=== PATIENT | male | born 1995 | race Caucasian/White ===

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

== ENCOUNTER 2017-05-20 16:40 | Emergency (ER) | payer OTHER ==
[2017-05-20 17:59] VITALS: BP 107/69
--- NOTE | 2017-05-20 18:31 | ED ---
Abdominal Pain/Male - HPI Summary HPI Summary: 21 yr old male with onset of abdominal pain this morning at 6 am. Pain is in lower abdomen, associated with decreased appetite. He has not had fever or chills. He denies diarrhea. No vomiting. He does not have worse symptoms with walking. He is requesting a note for school. - History of Current Complaint Chief Complaint: UCAbdominalPain Stated Complaint: DIGESTIVE COMP Time Seen by Provider: 05/20/17 18:10 Pain Intensity: 6 - Allergies/Home Medications Allergies/Adverse Reactions: Allergies Allergy/AdvReac Type Severity Reaction Status Date / Time No Known Allergies Allergy Verified 05/20/17 17:59 PMH/Surg Hx/FS Hx/Imm Hx Previously Healthy: Yes Infectious Disease History: No Infectious Disease History: Denies: Traveled Outside the [place] in Last 30 Days - Family History Known Family History: Negative: Cardiac Disease, Hypertension - Social History Occupation: Student Alcohol Use: Weekly Substance Use Type: Reports: None Smoking Status (MU): Never Smoked Tobacco Have You Smoked in the Last Year: No Review of Systems Negative: Fever, Chills Positive: Abdominal Pain Positive: no symptoms reported. Negative: pain, urgency All Other Systems Reviewed And Are Negative: Yes Physical Exam Triage Information Reviewed: Yes Vital Signs On Initial Exam: Initial Vitals Temp Pulse Resp BP Pulse Ox 98.8 F 93 14 107/69 97 05/20/17 17:55 05/20/17 17:55 05/20/17 17:55 05/20/17 17:55 05/20/17 17:55 Vital Signs Reviewed: Yes Appearance: Positive: Well-Appearing, No Pain Distress Skin: Positive: Warm, Skin Color Reflects Adequate Perfusion, Dry Head/Face: Positive: Normal Head/Face Inspection Eyes: Positive: EOMI ENT: Positive: Normal ENT inspection Respiratory/Lung Sounds: Positive: Clear to Auscultation, Breath Sounds Present Cardiovascular: Positive: RRR. Negative: Murmur Abdomen Description: Positive: Other: - mild tender in LLQ of abdomen. Musculoskeletal: Positive: Strength/ROM Intact Neurological: Positive: Sensory/Motor Intact, Alert, Oriented to Person Place, Time, CN Intact II-III Psychiatric: Positive: Normal - [place] Coma Scale Best Eye Response: 4 - Spontaneous Best Motor Response: 6 - Obeys Commands Best Verbal Response: 5 - Oriented Coma Scale Total: 15 Diagnostics - Vital Signs Vital Signs Temp Pulse Resp BP Pulse Ox 05/20/17 17:55 98.8 F 93 14 107/69 97 - Laboratory Lab Statement: Any lab studies that have been ordered have been reviewed, and results considered in the medical decision making process. Abdominal Pain Fem Course/Dx - Course Course Of Treatment: 21 yrold male with lower abdominal pain. He refused an ambulance and states he is able to drive himself to the ER. He states he is going to [facility] for further evaluation upon leaving here. He is aware of the possibility of appendicitis and not to delay going to the ER. Sydney Jeffery, E[facility]RA at [facility] contacted for tranfer over there and they are aware patient driving themselves there for further eval. - Diagnoses Provider Diagnoses: Abdominal pain, bilateral lower quadrant Discharge - Sign-Out/Discharge Documenting (check all that apply): Discharge - Discharge Plan Condition: Good Disposition: HOME Patient Education Materials: Acute Abdominal Pain (ED) Referrals: [facility] [Outside] Non Staff,Doctor [Primary Care Provider] - Additional Instructions: [facility]: Emergency Room Emergency Room DirectionsWebsite Address: [address] [place] [address] [place] [address] upon leaving here you need to go to the ER for further evaluation. - Billing Disposition and Condition Condition: GOOD Disposition: HOME
== END 2017-05-20 18:30 | disposition home or self-care (01) ==
LOC: UCCORT 16:40
DX: R10.32 Left lower quadrant pain (principal); R10.31 Right lower quadrant pain
CPT/HCPCS: 99212; G0463

== ENCOUNTER 2018-12-13 13:26 | Emergency (ER) | payer OTHER ==
--- NOTE | 2018-12-13 13:38 | UC ---
Throat Pain/Nasal Chris HPI - HPI Summary HPI Summary: 23 yo male presents with URI symptoms. He tells me that yesterday he developed a runny nose, headache, and sore throat. Took tylenol and felt a little better. [place] feverish all last night, but did not take his temperature. Denies cough, SOB, rash, abdominal pain, n/v - History of Current Complaint Stated Complaint: WADSWORTH,RUNNY NOSE Time Seen by Provider: 12/13/18 13:37 Hx Obtained From: Patient Onset/Duration: Sudden Onset Severity: Moderate Pain Intensity: 5 Pain Scale Used: 0-10 Numeric - Allergies/Home Medications Allergies/Adverse Reactions: Allergies Allergy/AdvReac Type Severity Reaction Status Date / Time No Known Allergies Allergy Verified 12/13/18 14:01 Home Medications: Home Medications Acetaminophen [Tylenol Extra Strength] 1,500 mg PO ONCE PRN 12/13/18 [History Confirmed 12/13/18] PMH/Surg Hx/FS Hx/Imm Hx - Additional Past Medical History Additional PMH: None - Surgical History Surgical History: None - Family History Known Family History: Negative: Cardiac Disease, Hypertension - Social History Occupation: Student Lives: Dormitory/Roommates Alcohol Use: Weekly Substance Use Type: None Smoking Status (MU): Never Smoked Tobacco Have You Smoked in the Last Year: No Review of Systems All Other Systems Reviewed And Are Negative: No Constitutional: Positive: Negative Skin: Positive: Negative Eyes: Positive: Negative ENT: Positive: Sore Throat, Nasal Discharge Respiratory: Positive: Negative Cardiovascular: Positive: Negative Neurological: Positive: Negative Psychological: Positive: Negative Physical Exam - Summary Physical Exam Summary: GENERAL: NAD. WDWN. No pain distress. SKIN: No rashes, sores, lesions, or open wounds. HEENT: Head: AT/NC Eyes: EOM intact. Conjunctiva clear without inflammation or discharge. Ears: Hearing grossly normal. TMs intact, no bulging, erythema, or edema. Nose: Nasal mucosa pink and moist. NTTP maxillary and frontal sinus. Throat: Posterior oropharynx with mild erythema. No exudates or tonsillar enlargement. Uvula midline. NECK: Supple. Nontender. No lymphadenopathy. CHEST: CTAB. No accessory muscle use. Breathing comfortably and in no distress. CV: RRR. Pulses intact. Cap refill <2seconds NEURO: Alert. PSYCH: Age appropriate behavior. Triage Information Reviewed: Yes Vital Signs: Vital Signs: Temp Pulse Resp BP Pulse Ox 98.6 F 82 17 128/49 97 12/13/18 14:00 12/13/18 14:00 12/13/18 14:00 12/13/18 14:00 12/13/18 14:00 Laboratory Tests 12/13/18 14:06 Group A Strep Rapid Positive A Vital Signs Reviewed: Yes Throat Pain/Nasal Course/Dx - Course Course Of Treatment: POC strep positive. Will treat with amoxicillin - Differential Dx/Diagnosis Provider Diagnosis: Strep throat Discharge ED - Sign-Out/Discharge Documenting (check all that apply): Patient Departure All imaging exams completed and their final reports reviewed: No Studies - Discharge Plan Condition: Stable Disposition: HOME Prescriptions: Amoxicillin PO (*) [Amoxicillin 500 MG CAP*] 500 mg PO Q12H #20 cap Patient Education Materials: Strep Throat (ED) Forms: *School Release Referrals: Non Staff,Doctor [Primary Care Provider] - Additional Instructions: If you develop a fever, shortness of breath, chest pain, new or worsening symptoms - please call your PCP or go to the ED immediately. - Billing Disposition and Condition Condition: STABLE Disposition: Home
[2018-12-13 14:03] VITALS: BP 128/49
== END 2018-12-13 14:18 | disposition home or self-care (01) ==
LOC: UCCORT 13:26
DX: J02.0 Streptococcal pharyngitis (principal); R09.89 Other specified symptoms and signs involving the circulatory and respiratory systems
CPT/HCPCS: 87651; 99212; G0463

== ENCOUNTER 2019-01-10 11:28 | Emergency (ER) | payer OTHER ==
[2019-01-10 11:41] VITALS: BP 140/70
--- NOTE | 2019-01-10 11:57 | UC ---
Throat Pain/Nasal Chris HPI - HPI Summary HPI Summary: sore throat x 1 day + fever, chills, body aches, mild cough, nasal congestion , just recovered from strep throat about one week ago - History of Current Complaint Chief Complaint: UCGeneralIllness Stated Complaint: COLD SYMPTOMS Time Seen by Provider: 01/10/19 11:43 Hx Obtained From: Patient Onset/Duration: Gradual Onset, Lasting Days - 1, Still Present Severity: Moderate Pain Intensity: 0 Cough: None Associated Signs & Symptoms: Positive: Fever. Negative: Dysphagia, FB Sensation , Drooling, Wheezing, Hoarseness, Sinus Discomfort, Nasal Discharge, Vomiting, Rash - Allergies/Home Medications Allergies/Adverse Reactions: Allergies Allergy/AdvReac Type Severity Reaction Status Date / Time No Known Allergies Allergy Verified 01/10/19 11:36 PMH/Surg Hx/FS Hx/Imm Hx Previously Healthy: Yes - Surgical History Surgical History: None Surgery Procedure, Year, and Place: appy - Family History Known Family History: Negative: Cardiac Disease, Hypertension - Social History Alcohol Use: Weekly Substance Use Type: None Smoking Status (MU): Never Smoked Tobacco Have You Smoked in the Last Year: No Review of Systems All Other Systems Reviewed And Are Negative: Yes Constitutional: Positive: Fever, Chills, Fatigue Skin: Positive: Negative Eyes: Positive: Negative ENT: Positive: Sore Throat. Negative: Ear Ache, Nasal Discharge Respiratory: Positive: Cough Cardiovascular: Positive: Negative Is Patient Immunocompromised?: No Physical Exam Triage Information Reviewed: Yes Appearance: Well-Appearing, No Pain Distress, Well-Nourished Vital Signs: Initial Vital Signs Temp 99.1 F 01/10/19 11:37 Pulse 83 01/10/19 11:37 Resp 16 01/10/19 11:37 BP 140/70 01/10/19 11:37 Pulse Ox 98 01/10/19 11:37 Vital Signs Reviewed: Yes Eyes: Positive: Conjunctiva Clear ENT: Positive: Normal ENT inspection, Hearing grossly normal, Pharyngeal erythema, Nasal drainage. Negative: Tonsillar swelling, Tonsillar exudate Neck exam: Normal Neck: Positive: Supple, Nontender, No Lymphadenopathy Respiratory: Positive: Chest non-tender, Lungs clear, Normal breath sounds Cardiovascular: Positive: RRR, No Murmur, Pulses Normal Skin Exam: Normal Throat Pain/Nasal Course/Dx - Differential Dx/Diagnosis Provider Diagnosis: Strep pharyngitis Discharge ED - Sign-Out/Discharge Documenting (check all that apply): Patient Departure All imaging exams completed and their final reports reviewed: No Studies - Discharge Plan Condition: Stable Disposition: HOME Prescriptions: Amoxicillin PO (*) [Amoxicillin 875 MG (*)] 875 mg PO BID #20 tab Patient Education Materials: Strep Throat (ED) Forms: *School Release Referrals: No Primary Care Phys,NOPCP [Primary Care Provider] - If Needed - Billing Disposition and Condition Condition: STABLE Disposition: Home
== END 2019-01-10 12:02 | disposition home or self-care (01) ==
LOC: UCCORT 11:28
DX: J02.0 Streptococcal pharyngitis (principal); R53.83 Other fatigue
CPT/HCPCS: 87651; 99212; G0463